=== PATIENT | female | born 1960 | race Caucasian/White ===

== ENCOUNTER 2022-09-16 09:09 | Emergency (ER) | payer OTHER, SELFPAY ==
[2022-09-16 09:10] VITALS: BP 131/75; PULSE 86; RESP 18; TEMP 36.6; O2SAT 99; BMI 31.9
--- NOTE | 2022-09-16 09:20 | EDS_ITS ---
HPI History of Present Illness HPI Narrative: Patient presents with right wrist injury that occurred today. Patient tripped and fell while she was at work. Patient landed on her right wrist. Patient states her pain is sharp, aching, and throbbing. Patient states her pain is worse with any movement. Patient denies any paresthesias or weakness. Patient denies any head injury or loss of consciousness. Patient denies any other injuries. Chief Complaint: Upper Extremity Injury Informant: patient Occured/Mechanism Mechanism/Context: Yes fall Onset/Context/Timing Onset: Today Context: Sudden Onset Timing: Continuous Quality of Pain: Sharp, Aching and Throbbing Location: Right wrist Worsened by: Movement Relieved by: Rest Associated Symptoms Associated Symptoms: Negative for Parasthesia, Weakness or Loss of Funtion PFSH PFSH Medical History no medical history no medical history Home Medications hydrocodone-acetaminophen 5-325mg 5mg-325mg 1 tab PO Q6H PRN PRN Pain 3 days #10 TABLETS 09/16/22 [Rx Last Taken Unknown] Allergy/AdvReac Type Severity Reaction Status Date / Time aspirin AdvReac Upset Verified 09/16/22 09:09 Stomach Surgical History (Updated 09/16/22 @ 09:[address] Sd Humphrey DO) History of section Social History (Updated 09/16/22 @ 09:[address] Sd Humphrey DO) Smoking Status: Never smoker alcohol intake: current alcohol intake frequency: holidays/special occasions only ROS ROS ED Constitutional Constitutional ED: Denies chills or fever(s) Eyes Eyes: Denies blurry vision or change in vision ENT ENT ED: Denies rhinorrhea or sore throat Cardiovascular Cardiovascular: Denies chest pain or palpitations Respiratory/Chest Respiratory/Chest: Denies cough or dyspnea Gastrointestinal Gastrointestinal: Denies nausea or vomiting Genitourinary Genitourinary ED: Denies dysuria or hematuria Musculoskeletal Musculoskeletal: Denies back pain or neck pain Integumentary Denies abscess or rash Neurologic Neurologic: Denies headache(s) or weakness Allergic/Immunologic Allergic/Immunologic ED: Denies mouth swelling or urticaria EXAM Physical Exam Const Vital Signs: 09/16/22 09:10 Temperature 97.8 F Temperature Source Temporal Pulse Rate 86 Respiratory Rate 18 Blood Pressure 131/75 H Blood Pressure Mean 93 Pulse Ox 99 Oxygen Delivery Method Room Air Positive well nourished, well developed and obese General Appearance ED: well developed and NAD Nutritional Appearance: obese HEENT Reports moist mucous membranes Neck full ROM and supple Extremity Extremity Narrative: There is tenderness and edema over the right wrist. There is tenderness over the radial and dorsal aspects of the right wrist. There is no obvious deformity noted. There is there is no bony crepitance or step-off. Range of motion was limited in all motions of the right wrist secondary to pain. Sensation was intact to light touch in the radial, median, and ulnar areas. Strength is 5/5 in the radial, median, and ulnar areas. Radial pulses are equal bilaterally. Neuro oriented x3, CN's II-XII intact bilaterally, moves all extremities, no focal motor deficits and no sensory deficits noted Sensorium / Orientation: alert Motor Exam: strength 5/5 throughout Psych mental status grossly normal MDM MDM MDM Narrative Medical decision making narrative: Differential diagnosis includes right wrist fracture, sprain, and dislocation. X-rays of the right wrist will be obtained to assess for fracture and dislocation. Radiography Diagnostic Testing: X-rays of the right wrist were obtained. There are 4 views. On my independent interpretation, there is a comminuted nondisplaced fracture of the right distal radius. There is no ulnar styloid fracture. Radiologist also interpreted the x-ray and agrees. Treatment and Re-Evaluation Narrative: Patient was advised of her findings. Patient was given a dose of [place] here. Patient was placed in a well-padded custom made AP splint using 3 inch Ortho- Glass. Neurovascular exam was intact before and after application of the splint. Patient was instructed to ice and elevate the right wrist. Patient was given referral for orthopedics. Patient was given a prescription for [place]. Patient was instructed to follow-up in 3 to 5 days. Patient understood and was agreeable with the plan. All questions were answered. Procedures Upper Extremity Splints Upper Extremity Splint: Orthoglass and - (Short arm AP splint) Splint Fabrication: Fabricated Location: Right Discharge Plan Triage Chief Complaint: Upper Extremity Injury ED Provider: Sd Humphrey Dx/Rx/DC Orders Clinical Impression: Closed fracture of right distal radius, Fall Instructions: ED Fracture, Wrist, General Prescriptions: New hydrocodone-acetaminophen [hydrocodone-acetaminophen] 5-325 mg tablet 1 tab PO Q6H PRN PRN (Reason: Pain) 3 Days Qty: 10 0RF Stand Alone Forms: ED Work / School Excuse Primary Care Provider: Carlitos Barboza Referrals: Darrel Lopez DO [Med Staff - Active Staff] - 3-5 Days Carlitos Barboza DO [Primary Care Provider] - 1-2 Weeks Disposition Disposition: Home, Self Care Discharge Date/Time: 09/16/22 10:43
--- NOTE | 2022-09-16 09:25 | RAD_ITS ---
STUDY: X-RAY - RIGHT WRIST REASON FOR EXAM: Female, 61 years old. Injury/Pain -- Please include navicular view TECHNIQUE: 4 view(s) of the wrist were obtained including the navicular view.. COMPARISON: None. FINDINGS: Nondisplaced transverse fracture of the distal radial metaphysis. Normal radiocarpal articulation. Normal distal radioulnar articulation. Normal carpal bones. Normal carpal articulations. Normal carpometacarpal articulation of the thumb. Normal second through fifth carpometacarpal articulations. Normal visualized metacarpal bones. Soft tissue swelling. RAD/Wrist min 3 Views IMPRESSION: Nondisplaced transverse fracture of the distal radial metaphysis. Soft tissue swelling. Electronically Signed: Cole Cohen MD at 10:27 EDT ,
[2022-09-16] MEDS: HYDROcodone Bitartrate/Apap 5/325 Tablet PO (10:09)
== END 2022-09-16 10:43 | disposition home or self-care (01) ==
PROVIDERS: Emergency Provider Emergency Medicine; PCP Student in an Organized Health Care Education/Training Program; Visit Provider Emergency Medicine
DX: S52.501A Unspecified fracture of the lower end of right radius, initial encounter for closed fracture (principal); E66.9 Obesity, unspecified; W19.XXXA Unspecified fall, initial encounter
CPT/HCPCS: 29125; 73110; 99283